=== PATIENT | female | born 1950 | race Hispanic/Latino ===

== ENCOUNTER → 2019-06-07 | Outpatient (CLI) | payer MEDICARE ==
[~2019-06-07] MED LIST: AMLO5TAB9 PO; ASPI-1005 PO; CHOL50009 PO; CLOP75TA32 PO; DAPA10TA PO; FURO40TA5 PO; GABA600T10 PO; HYDR-2132 PO; HYDR-4457 PO; IRON1CAP28 PO; LEVO112T4 PO; LIOT25TA12 PO; LISI40TA4 PO; LORA10TA7 PO; MAGN400T25 PO; MONT10TA26 PO; PIOG45TA64 PO; POTA-79 PO; PRAV20TA4 PO; ROPI0.5T7 PO; SITA1TAB6 PO; VITAMIN D PO
== END | disposition home or self-care (01) ==
LOC: RAH 13:52
PROVIDERS: ATTEND Orthopaedic Surgery
DX: M19.012 Primary osteoarthritis, left shoulder (principal); M25.812 Other specified joint disorders, left shoulder
CPT/HCPCS: 73221

== ENCOUNTER → 2020-04-24 | Outpatient (CLI) | payer MEDICARE ==
[~2020-04-24] MED LIST changes: +AMLO-257 PO; -AMLO5TAB9 PO; -LISI40TA4 PO; +LISI40TA9 PO; -MONT10TA26 PO; +MONT10TA32 PO
== END | disposition home or self-care (01) ==
LOC: RAH 07:51
PROVIDERS: ATTEND Orthopaedic Surgery
DX: S46.012A Strain of muscle(s) and tendon(s) of the rotator cuff of left shoulder, initial encounter (principal); M19.012 Primary osteoarthritis, left shoulder; M25.412 Effusion, left shoulder; X58.XXXA Exposure to other specified factors, initial encounter; Y92.89 Other specified places as the place of occurrence of the external cause; Y93.89 Activity, other specified; Y99.8 Other external cause status
CPT/HCPCS: 73221

== ENCOUNTER 2020-07-05 09:00 | Inpatient (IN) | payer MEDICARE ==
[~2020-07-05] VITALS: Ht 144.8 cm; Wt 105.9 kg
[~2020-07-05 09:00] MED LIST changes: -AMLO-257 PO; -ASPI-1005 PO; -CHOL50009 PO; -CLOP75TA32 PO; -HYDR-2132 PO; -HYDR-4457 PO; -IRON1CAP28 PO; -LIOT25TA12 PO; -LORA10TA7 PO; +MONT-39 PO; -MONT10TA32 PO; -POTA-79 PO; -PRAV20TA4 PO; -ROPI0.5T7 PO; -VITAMIN D PO
[2020-07-05 10:35] LABS: BASOPHILS % (AUTO) 0.5 % (0.0-5.0); EOSINOPHILS % (AUTO) 0.9 % (0.0-8.0); HEMATOCRIT 37.2 % (36-48); LYMPHOCYTES % (AUTO) 18.2 % (21.0-51.0); MEAN CORPUSCULAR HEMOGLOBIN 27.7 pg (27.0-33.0); MEAN CORPUSCULAR HGB CONC 30.9 g/dL (32.0-36.0); MEAN CORPUSCULAR VOLUME 89.6 fL (79-99); MONOCYTES % (AUTO) 5.3 % (3.0-13.0); NEUTROPHILS % (AUTO) 74.7 % (40.0-77.0); PLATELET COUNT (AUTO) 279 K/uL (130-400); RED BLOOD CELL COUNT(AUTO) 4.15 MIL/uL (4.00-5.50); RED CELL DISTRIBUTION WIDTH 12.9 % (11.0-15.5)
[2020-07-05 10:36] LABS: APPEARANCE,URINE Clear (CLEAR); BILIRUBIN,URINE Negative (NEGATIVE); COLOR,URINE Yellow (YELLOW); GLUCOSE, URINE (UA) >=1000 mg/dL (NEGATIVE); KETONES,URINE Negative (NEGATIVE); LEUKOCYTE ESTERASE ,URINE Moderate (NEGATIVE); NITRATE,URINE Negative (NEGATIVE); OCCULT BLOOD,URINE Negative (NEGATIVE); PH,URINE 5.5 (5.0-8.0); PROTEIN,URINE Negative (NEGATIVE); UROBILINOGEN,URINE 0.2 mg/dL (0.2-1.0)
[2020-07-05 10:40] LABS: BACTERIA,URINE Few /HPF (None Seen); RBC,URINE 0-1 /HPF (0-1); SQUAMOUS EPITHELIAL CELL,UR Few /HPF (0-2)
[2020-07-05 10:44] LABS: CREATININE 1.1 mg/dL (0.5-1.5); INR 1.01 (0.85-1.15); POTASSIUM 4.9 mmol/L (3.5-5.1)
[2020-07-09 10:32] VITALS: BP 181/72
[2020-07-09] MEDS ORDERED: LORA10TA7 PO (14:31)
[2020-07-09] MEDS ORDERED: POTA-79 PO (14:31)
[2020-07-09] MEDS ORDERED: ROSU40TA21 PO (14:31)
[2020-07-10] VITALS (22 sets, daily range): BP systolic 112–186; BP diastolic 41–73
[2020-07-10] MEDS ORDERED: GENTAMICIN SULFATE 240 MG in 0.9%NACL 100ML 100 ML IV SCH (06:00)
[2020-07-10] MEDS ORDERED: 0.9%NACL 1000ML 1,000 ML IV ONE (10:16)
[2020-07-10] MEDS ORDERED: CEFAZOLIN SODIUM 1 GM VIAL ONE ×3 (10:16→20:25)
[2020-07-10] MEDS: CEFAZOLIN SODIUM 1 GM VIAL IVP SCH ×2 (10:45→15:45)
[2020-07-10] MEDS ORDERED: ACETAMINOPHEN 500 MG TABLET ONE (13:35)
[2020-07-10] MEDS ORDERED: KETOROLAC 15MG/ML VIAL (15MG/ML) ONE (13:35)
[2020-07-10] MEDS ORDERED: CELECOXIB 200 MG CAP ONE (13:36)
[2020-07-10] MEDS ORDERED: TRANEXAMIC ACID 1000MG/10ML ONE ×2 (14:31→19:37)
[2020-07-10] MEDS ORDERED: LIDOCAINE PF 100MG/5ML (2%) SYRINGE 5ML ONE (14:55)
[2020-07-10] MEDS ORDERED: ONDANSETRON 4MG INJ ONE (14:56)
[2020-07-10] MEDS ORDERED: MIDAZOLAM HCL 1 MG/ML 2ML VIAL ONE (14:56)
[2020-07-10] MEDS ORDERED: PROPOFOL 10 MG/ML 20ML VIAL IV ONE ×2 (14:56→16:18)
[2020-07-10] MEDS ORDERED: ROCURONIUM 10MG/1ML SYR 10 MG/ML ML ONE ×2 (14:56→17:31)
[2020-07-10] MEDS ORDERED: FENTANYL CITRATE PF 50 MCG/1 ML 2ML VIAL ONE (14:57)
[2020-07-10] MEDS ORDERED: ROPIVACAINE 0.5% 5MG/ML 30ML IJ ONE (14:58)
[2020-07-10] MEDS ORDERED: KETAMINE 50MG/ML SYRINGE 50 MG/ML DISP.SYRIN IV ONE (14:58)
[2020-07-10] MEDS ORDERED: DEXAMETHASONE SOD PHOSPHATE 10MG/ML 1ML VIAL ONE (15:28)
[2020-07-10 18:16] LABS: ABG BASE EXCESS 0.1 mmol/L (-2.0-3.0); ABG HCO3 23.9 mmol/L (21.0-28.0); ABG PCO2 36 mmHg (32-45)
[2020-07-10] MEDS ORDERED: LABETALOL 20MG SYG IV ONE (18:21)
[2020-07-10] MEDS ORDERED: SUGAMMADEX SODIUM 200 MG/2 ML VIAL IV ONE (18:21)
[2020-07-10] MEDS ORDERED: KCL 20 MEQ ERTAB PO PRN (18:30)
[2020-07-10] MEDS ORDERED: OXYCODONE HCL 5 MG TAB PO PRN (18:30)
[2020-07-10] MEDS: ACETAMINOPHEN 500 MG TABLET PO SCH (18:30)
[2020-07-10] MEDS ORDERED: DiphenhydrAMINE HCL 50 MG/ML VIAL IVP PRN (18:30)
[2020-07-10] MEDS ORDERED: LIDOCAINE HCL-MPF 1% 2ML VIAL IV PRN (18:30)
[2020-07-10] MEDS ORDERED: ONDANSETRON 4MG INJ IVP PRN (18:30)
[2020-07-10] MEDS ORDERED: POTASSIUM CHLORIDE 10% ELIXIR 20 MEQ/15 ML UDCUP PO PRN (18:30)
[2020-07-10] MEDS ORDERED: FE FUMARATE/FA/MV, MIN COMB#15 1 TAB PO PRN (18:30)
[2020-07-10] MEDS ORDERED: POTASSIUM CHLORIDE 20MEQ/100ML 100 ML IV PRN (18:30)
[2020-07-10] MEDS ORDERED: TEMAZEPAM 15 MG CAPSULE PO PRN (18:30)
[2020-07-10] MEDS ORDERED: TRAMADOL HCL 50 MG TABLET PO PRN (18:30)
[2020-07-10] MEDS ORDERED: KETOROLAC 15MG/ML VIAL (15MG/ML) IV PRN (18:30)
[2020-07-10] MEDS ORDERED: MEPERIDINE-PF 25 MG/ML SYG ONE (19:03)
[2020-07-10] MEDS ORDERED: CEFOXITIN SODIUM 2 GM VIAL ONE (20:19)
[2020-07-10] MEDS: CELECOXIB 200 MG CAP PO SCH (20:56)
[2020-07-10] MEDS: FAMOTIDINE 20MG TAB PO SCH (20:57)
[2020-07-10] MEDS: ASPIRIN 81MG CHEW TAB PO SCH (20:57)
[2020-07-10] MEDS: INSULIN HUMULIN R 100 UNIT/ML 3ML SQ SCH (20:59)
[2020-07-11] VITALS (7 sets, daily range): BP systolic 105–156; BP diastolic 46–81
[2020-07-11] MEDS: CEFAZOLIN SODIUM 1 GM VIAL IVP SCH ×2 (00:29→06:08)
[2020-07-11] MEDS: ACETAMINOPHEN 500 MG TABLET PO SCH ×3 (02:33→20:45)
[2020-07-11] MEDS: 0.9%NACL 1000ML 1,000 ML IV SCH ×2 (02:33→14:30)
[2020-07-11] MEDS: OXYCODONE HCL 5 MG TAB PO PRN ×3 (02:34→23:42)
[2020-07-11 03:34] LABS: HEMATOCRIT 32.3 % (36-48); MEAN CORPUSCULAR HEMOGLOBIN 27.3 pg (27.0-33.0); MEAN CORPUSCULAR HGB CONC 30.3 g/dL (32.0-36.0); RED BLOOD CELL COUNT(AUTO) 3.59 MIL/uL (4.00-5.50); RED CELL DISTRIBUTION WIDTH 13.1 % (11.0-15.5); WHITE BLOOD COUNT (AUTO) 14.3 K/uL (4.8-10.8)
[2020-07-11 03:45] LABS: CREATININE 1.1 mg/dL (0.5-1.5); POTASSIUM 4.8 mmol/L (3.5-5.1)
[2020-07-11] MEDS: LEVOTHYROXINE 112 MCG TABLET PO SCH (05:41)
[2020-07-11] MEDS: INSULIN HUMULIN R 100 UNIT/ML 3ML SQ SCH ×4 (06:26→20:41)
[2020-07-11] MEDS: METFORMIN HCL PO SCH ×2 (08:00→17:00)
[2020-07-11] MEDS: SITAGLIPTIN PHOS PO SCH ×2 (08:00→17:00)
[2020-07-11] MEDS: LORATADINE 10 MG TABLET PO SCH (08:45)
[2020-07-11] MEDS: MAGNESIUM OXIDE 400 MG TABLET PO SCH (08:45)
[2020-07-11] MEDS: FAMOTIDINE 20MG TAB PO SCH (08:45)
[2020-07-11] MEDS: FUROSEMIDE 40 MG TABLET PO SCH (08:46)
[2020-07-11] MEDS: CALCIUM CARB 500MG PO PRN ×2 (08:46→19:33)
[2020-07-11] MEDS: ASPIRIN 81MG CHEW TAB PO SCH ×2 (08:46→19:33)
[2020-07-11] MEDS: LISINOPRIL 40 MG TABLET PO SCH (08:46)
[2020-07-11] MEDS: KCL 20 MEQ ERTAB PO SCH (08:46)
[2020-07-11] MEDS: GABAPENTIN 300 MG CAPSULE PO SCH ×3 (08:47→19:33)
[2020-07-11] MEDS: CELECOXIB 200 MG CAP PO SCH ×2 (08:47→19:33)
[2020-07-11] MEDS: DAPAGLIFLOZIN PROPANEDIOL 10 MG PO SCH (08:48)
[2020-07-11] MEDS: POLYETHYLENE GLYCOL 3350 17 GM POWD.PACK PO SCH (08:48)
[2020-07-11] MEDS: PIOGLITAZONE 15MG TAB PO SCH (17:53)
[2020-07-11] MEDS ORDERED: ATORVASTATIN 40 MG TABLET ONE (19:29)
[2020-07-11] MEDS ORDERED: MONTELUKAST SODIUM 10 MG TAB PO SCH (21:00)
[2020-07-11] MEDS ORDERED: ATORVASTATIN 40 MG TABLET PO SCH (21:00)
[2020-07-12 04:41] VITALS: BP 109/52
[2020-07-12] MEDS: ACETAMINOPHEN 500 MG TABLET PO SCH ×2 (05:18→13:42)
[2020-07-12] MEDS: LEVOTHYROXINE 112 MCG TABLET PO SCH (05:18)
[2020-07-12] MEDS: INSULIN HUMULIN R 100 UNIT/ML 3ML SQ SCH ×3 (05:59→16:30)
[2020-07-12 08:00] VITALS: BP 108/55
[2020-07-12] MEDS: SITAGLIPTIN PHOS PO SCH ×2 (08:00→17:00)
[2020-07-12] MEDS: METFORMIN HCL PO SCH ×2 (08:00→17:00)
[2020-07-12] MEDS: OXYCODONE HCL 5 MG TAB PO PRN (08:10)
[2020-07-12] MEDS: DAPAGLIFLOZIN PROPANEDIOL 10 MG PO SCH (09:00)
[2020-07-12] MEDS: POLYETHYLENE GLYCOL 3350 17 GM POWD.PACK PO SCH (09:29)
[2020-07-12] MEDS: ASPIRIN 81MG CHEW TAB PO SCH (09:30)
[2020-07-12] MEDS: MAGNESIUM OXIDE 400 MG TABLET PO SCH (09:30)
[2020-07-12] MEDS: KCL 20 MEQ ERTAB PO SCH (09:31)
[2020-07-12] MEDS: CELECOXIB 200 MG CAP PO SCH (09:31)
[2020-07-12] MEDS: GABAPENTIN 300 MG CAPSULE PO SCH ×2 (09:31→13:41)
[2020-07-12] MEDS: FAMOTIDINE 20MG TAB PO SCH (09:32)
[2020-07-12] MEDS: LISINOPRIL 40 MG TABLET PO SCH (09:32)
[2020-07-12] MEDS: LORATADINE 10 MG TABLET PO SCH (09:33)
[2020-07-12] MEDS: FUROSEMIDE 40 MG TABLET PO SCH (09:34)
[2020-07-12 11:49] VITALS: BP 120/43
[2020-07-12 16:00] VITALS: BP 127/52
[2020-07-12] MEDS ORDERED: HYDR-4060 PO (17:44)
[2020-07-12] MEDS: PIOGLITAZONE 15MG TAB PO SCH (18:18)
[2020-07-13] MEDS ORDERED: BISACODYL 10 MG SUPP.RECT RC PRN (18:30)
== END 2020-07-12 19:13 | disposition home health service (06) | DRG 483 ==
LOC: EDSTATUS 09:00 → DAHIP 07-10 09:47 → OBSVTOIN 07-10 09:47 → 4AH 07-10 19:46
PROVIDERS: ADMIT Orthopaedic Surgery; ATTEND Orthopaedic Surgery
PROC: 0RRK0JZ Replacement of Left Shoulder Joint with Synthetic Substitute, Open Approach (ICD-10-PCS; principal; 2020-07-10 14:56)
DX: M19.012 Primary osteoarthritis, left shoulder (principal); D64.9 Anemia, unspecified; I10 Essential (primary) hypertension; E11.9 Type 2 diabetes mellitus without complications; E78.00 Pure hypercholesterolemia, unspecified; E03.9 Hypothyroidism, unspecified; Z20.822 Contact with and (suspected) exposure to COVID-19; Z96.611 Presence of right artificial shoulder joint; Z96.652 Presence of left artificial knee joint; Z88.8 Allergy status to other drugs, medicaments and biological substances; Z90.710 Acquired absence of both cervix and uterus; Z90.49 Acquired absence of other specified parts of digestive tract
CPT/HCPCS: 36415; 73030; 80048; 81001; 82435; 82803; 82947; 82948; 83605; 84132; 84295; 85018; 85025; 85027; 85610; 87088; 87641; 88305; 88311; 93005; 96365; 96374; 97039; A4565; C1776; G0378; J0690; J0694; J1100; J1580; J1815; J1885; J2001; J2175; J2250; J2405; J2704; J2795; J3010; J3490; J7030; J7040; U0003

== ENCOUNTER → 2020-10-08 | Outpatient (CLI) | payer MEDICARE ==
[~2020-10-08] MED LIST changes: +HYDR-4060 PO; +LORA10TA7 PO; -MONT-39 PO; +MONT10TA32 PO; +POTA-79 PO; +ROSU40TA21 PO
== END | disposition home or self-care (01) ==
LOC: RAH 08:27
PROVIDERS: ATTEND Family Medicine
DX: M47.817 Spondylosis without myelopathy or radiculopathy, lumbosacral region (principal); M48.07 Spinal stenosis, lumbosacral region
CPT/HCPCS: 72148

== ENCOUNTER 2021-04-19 11:01 | Emergency (ER) | payer OTHER, MEDICARE ==
[~2021-04-19] VITALS: Ht 149.9 cm; Wt 104.3 kg
[~2021-04-19 11:01] MED LIST changes: +MONT-39 PO; -MONT10TA32 PO
[2021-04-19 11:47] LABS: BASOPHILS % (AUTO) 0.3 % (0.0-5.0); EOSINOPHILS % (AUTO) 0.3 % (0.0-8.0); HEMATOCRIT 38.3 % (36-48); LYMPHOCYTES % (AUTO) 15.6 % (21.0-51.0); MEAN CORPUSCULAR HEMOGLOBIN 25.5 pg (27.0-33.0); MEAN CORPUSCULAR HGB CONC 30.5 g/dL (32.0-36.0); MEAN CORPUSCULAR VOLUME 83.6 fL (79-99); MONOCYTES % (AUTO) 6.3 % (3.0-13.0); NEUTROPHILS % (AUTO) 77.1 % (40.0-77.0); PLATELET COUNT (AUTO) 311 K/uL (130-400); RED BLOOD CELL COUNT(AUTO) 4.58 MIL/uL (4.00-5.50); RED CELL DISTRIBUTION WIDTH 14.8 % (11.0-15.5); WHITE BLOOD COUNT (AUTO) 12.9 K/uL (4.8-10.8)
[2021-04-19 12:01] LABS: ALBUMIN 3.8 g/dL (3.5-5.0); BILIRUBIN,TOTAL 0.2 mg/dL (0.2-1.0); CREATININE 1.1 mg/dL (0.5-1.5); POTASSIUM 4.3 mmol/L (3.5-5.1); TOTAL PROTEIN, SERUM 7.9 g/dL (6.0-8.3)
[2021-04-19 12:24] LABS: APPEARANCE,URINE Clear (CLEAR); BILIRUBIN,URINE Negative (NEGATIVE); COLOR,URINE Yellow (YELLOW); GLUCOSE, URINE (UA) >=1000 mg/dL (NEGATIVE); KETONES,URINE Negative (NEGATIVE); LEUKOCYTE ESTERASE ,URINE Negative (NEGATIVE); NITRATE,URINE Negative (NEGATIVE); OCCULT BLOOD,URINE Negative (NEGATIVE); PH,URINE 5.5 (5.0-8.0); PROTEIN,URINE Negative (NEGATIVE); UROBILINOGEN,URINE 0.2 mg/dL (0.2-1.0)
[2021-04-19 12:52] LABS: BACTERIA,URINE Rare /HPF (None Seen); RBC,URINE 0-1 /HPF (0-1); SQUAMOUS EPITHELIAL CELL,UR Rare /HPF (0-2); WBC,URINE 0-1 /HPF (0-1)
[2021-04-19 13:53] VITALS: BP 152/71
[2021-04-19] MEDS ORDERED: CIPR-278 PO (14:21)
[2021-04-19] MEDS ORDERED: GABA600T10 PO (14:21)
[2021-04-19] MEDS ORDERED: LEVOFLOXACIN 500 MG TABLET PO SCH (14:30)
== END 2021-04-19 14:56 | disposition home or self-care (01) ==
LOC: EDH 11:01
DX: K52.9 Noninfective gastroenteritis and colitis, unspecified (principal); E11.9 Type 2 diabetes mellitus without complications; E78.00 Pure hypercholesterolemia, unspecified; M19.90 Unspecified osteoarthritis, unspecified site; Z88.1 Allergy status to other antibiotic agents; Z79.84 Long term (current) use of oral hypoglycemic drugs; Z79.899 Other long term (current) drug therapy; Z90.49 Acquired absence of other specified parts of digestive tract
CPT/HCPCS: 36415; 74176; 80053; 81001; 83690; 84484; 85025; 93005

== ENCOUNTER 2023-05-09 09:12 | Observation (INO) | payer MEDICARE ==
[~2023-05-09] VITALS: Ht 149.9 cm; Wt 108.0 kg
[~2023-05-09 09:12] MED LIST changes: +CIPR-278 PO; +POTA-364 PO; -POTA-79 PO
[2023-05-09 10:01] LABS: BASOPHILS # (AUTO) 0.07 K/uL (0.00-0.20); BASOPHILS % (AUTO) 0.5 % (0.0-5.0); EOSINOPHILS # (AUTO) 0.06 K/uL (0.00-0.70); EOSINOPHILS % (AUTO) 0.4 % (0.0-8.0); HEMATOCRIT 33.3 % (36-48); IMMATURE GRANULOCYTE ABSOLUTE 0.08 K/uL (0-1); LYMPHOCYTES # (AUTO) 1.7 K/uL (1.0-4.8); LYMPHOCYTES % (AUTO) 12.1 % (21.0-51.0); MEAN CORPUSCULAR HEMOGLOBIN 24.6 pg (27.0-33.0); MEAN CORPUSCULAR HGB CONC 29.1 g/dL (32.0-36.0); MEAN CORPUSCULAR VOLUME 84.3 fL (79-99); MONOCYTES # (AUTO) 1.1 K/uL (0.1-1.0); MONOCYTES % (AUTO) 8.1 % (3.0-13.0); NEUTROPHILS % (AUTO) 78.3 % (40.0-77.0); PLATELET COUNT (AUTO) 336 K/uL (130-400); RED BLOOD CELL COUNT(AUTO) 3.95 MIL/uL (4.00-5.50); RED CELL DISTRIBUTION WIDTH 14.6 % (11.0-15.5)
[2023-05-09 10:13] LABS: APPEARANCE,URINE CLEAR (CLEAR); BILIRUBIN,URINE NEGATIVE (NEGATIVE); COLOR,URINE LIGHT-YELLOW (YELLOW); GLUCOSE, URINE (UA) 300 mg/dL (NEGATIVE); KETONES,URINE NEGATIVE (NEGATIVE); LEUKOCYTE ESTERASE ,URINE NEGATIVE Leu/uL (NEGATIVE); NITRATE,URINE NEGATIVE (NEGATIVE); OCCULT BLOOD,URINE NEGATIVE (NEGATIVE); PH,URINE 5.5 (5.0-8.0); PROTEIN,URINE 100 mg/dL (NEGATIVE); UROBILINOGEN,URINE 0.2 mg/dL (0.2-1.0)
[2023-05-09 10:13] LABS: CREATININE 1.8 mg/dL (0.5-1.5); POTASSIUM 4.7 mmol/L (3.5-5.1)
[2023-05-09 10:14] LABS: ADD UA MICROSCOPIC YES
[2023-05-09 10:17] LABS: BACTERIA,URINE RARE /HPF (None Seen); MUCUS,URINE RARE LPF (None Seen); RBC,URINE 0-1 /HPF (0-1); WBC,URINE 0-1 /HPF (0-1)
[2023-05-09 10:17] LABS: BILIRUBIN,TOTAL 0.2 mg/dL (0.2-1.0); TOTAL PROTEIN, SERUM 7.3 g/dL (6.0-8.3)
[2023-05-09 12:34] LABS: SARS-CoV-2, RNA, NAAT NEGATIVE SARS CoV-2 (NEGATIVE)
[2023-05-09 12:37] LABS: INFLUENZA TYPE A Negative For Type A (NEGATIVE); INFLUENZA TYPE B Negative For Type B (NEGATIVE)
[2023-05-09] MEDS ORDERED: GUAIFENESIN SUGAR-FREE 100 MG/5 ML UDCUP PO PRN (13:00)
[2023-05-09] MEDS ORDERED: POLYETHYLENE GLYCOL 3350 17 GM POWD.PACK PO PRN (13:00)
[2023-05-09] MEDS ORDERED: BENZOCAINE/MENTH/CETYLPYRD CL 1 EACH LOZENGE MM PRN (13:00)
[2023-05-09] MEDS ORDERED: DOCUSATE SODIUM 100 MG CAP PO PRN (13:00)
[2023-05-09] MEDS ORDERED: LOPERAMIDE HCL 2 MG CAP PO PRN (13:00)
[2023-05-09 13:08] LABS: THYROID STIMULATING HORMONE 1.23 uIU/mL (0.36-3.74)
[2023-05-09] MEDS ORDERED: BUSP5TAB3 PO (14:21)
[2023-05-09] MEDS ORDERED: AMLO-257 PO (14:21)
[2023-05-09] MEDS ORDERED: LEVO150C4 PO (14:21)
[2023-05-09] MEDS ORDERED: MONT-39 PO (14:21)
[2023-05-09] MEDS ORDERED: METF-446 PO (14:21)
[2023-05-09] MEDS ORDERED: LISI40TA9 PO (14:21)
[2023-05-09] MEDS ORDERED: HYDR-3421 PO (14:21)
[2023-05-09] MEDS ORDERED: HYDR25TA PO (14:21)
[2023-05-09] MEDS ORDERED: ATOR10 PO (14:21)
[2023-05-09] MEDS ORDERED: GLIM2TAB30 PO (14:21)
[2023-05-09] MEDS ORDERED: METO50TA18 PO (14:21)
[2023-05-09] MEDS ORDERED: OMEP20CA12 PO (14:21)
[2023-05-09] MEDS ORDERED: CILO100T3 PO (14:21)
[2023-05-09] MEDS ORDERED: GABA600T10 PO (14:21)
[2023-05-09] MEDS ORDERED: FURO40TA5 PO (14:21)
[2023-05-09 14:40] VITALS: BP 157/70; PULSE 68; RESP 18
[2023-05-09 14:50] VITALS: O2SAT 95
[2023-05-09 15:27] LABS: AMPHET/METH SCREEN,URINE NEGATIVE (NEGATIVE); BARBITURATE SCREEN, URINE NEGATIVE (NEGATIVE); BENZODIAZEPINES SCREEN,URINE NEGATIVE (NEGATIVE); CANNABINOID SCREEN,URINE NEGATIVE (NEGATIVE); COCAINE SCREEN,URINE NEGATIVE (NEGATIVE); OPIATE SCREEN,URINE NEGATIVE (NEGATIVE); PHENCYCLIDINE SCREEN,URINE NEGATIVE (NEGATIVE)
[2023-05-09] MEDS ORDERED: BENZ-226 PO (15:28)
[2023-05-09] MEDS ORDERED: IBUP-2077 PO (15:28)
[2023-05-09] MEDS ORDERED: ASPI500T19 PO (15:33)
[2023-05-09] MEDS ORDERED: DESL5TAB38 PO (15:33)
[2023-05-09] MEDS ORDERED: CHOL200012 PO (15:33)
[2023-05-09 17:00] VITALS: BP 153/68; PULSE 94; RESP 18
[2023-05-09 19:45] VITALS: O2SAT 94
[2023-05-09 20:00] VITALS: BP 149/68; PULSE 94; RESP 20
[2023-05-10] VITALS: BP 125/65; PULSE 91; RESP 20
[2023-05-10 04:00] VITALS: BP 131/65; PULSE 76; RESP 20
[2023-05-10 08:00] VITALS: BP 120/66; PULSE 77; RESP 20
[2023-05-10 09:47] LABS: BASOPHILS # (AUTO) 0.05 K/uL (0.00-0.20); BASOPHILS % (AUTO) 0.4 % (0.0-5.0); EOSINOPHILS # (AUTO) 0.05 K/uL (0.00-0.70); EOSINOPHILS % (AUTO) 0.4 % (0.0-8.0); HEMATOCRIT 33.3 % (36-48); IMMATURE GRANULOCYTE ABSOLUTE 0.08 K/uL (0-1); LYMPHOCYTES # (AUTO) 1.4 K/uL (1.0-4.8); MEAN CORPUSCULAR HEMOGLOBIN 24.3 pg (27.0-33.0); MEAN CORPUSCULAR HGB CONC 28.8 g/dL (32.0-36.0); MEAN CORPUSCULAR VOLUME 84.3 fL (79-99); MONOCYTES # (AUTO) 0.9 K/uL (0.1-1.0); NEUTROPHILS # (AUTO) 10.4 K/uL (1.8-7.7); NEUTROPHILS % (AUTO) 80.6 % (40.0-77.0); PLATELET COUNT (AUTO) 323 K/uL (130-400); RED BLOOD CELL COUNT(AUTO) 3.95 MIL/uL (4.00-5.50); RED CELL DISTRIBUTION WIDTH 14.6 % (11.0-15.5)
[2023-05-10 09:54] LABS: CREATININE 1.3 mg/dL (0.5-1.5); POTASSIUM 4.4 mmol/L (3.5-5.1)
[2023-05-10] MEDS: ENOXAPARIN SODIUM 40 MG/0.4 ML SYRINGE SQ SCH (09:57)
[2023-05-10] MEDS: PANTOPRAZOLE 40 MG TAB DR PO SCH (09:57)
[2023-05-10 10:36] VITALS: O2SAT 96
[2023-05-10 12:00] VITALS: BP 165/66; PULSE 80; RESP 20
[2023-05-10 16:00] VITALS: BP 175/77; PULSE 79; RESP 20
== END 2023-05-10 17:55 | disposition home or self-care (01) ==
LOC: EDH 09:12 → EDHIP 12:49 → 3DH 14:40
PROVIDERS: ADMIT Internal Medicine; ATTEND Internal Medicine
DX: R41.82 Altered mental status, unspecified (principal); Z20.822 Contact with and (suspected) exposure to COVID-19; E11.65 Type 2 diabetes mellitus with hyperglycemia; I10 Essential (primary) hypertension; J45.909 Unspecified asthma, uncomplicated; E03.9 Hypothyroidism, unspecified; E66.9 Obesity, unspecified; G47.33 Obstructive sleep apnea (adult) (pediatric); M06.9 Rheumatoid arthritis, unspecified; G89.29 Other chronic pain; M54.50 Low back pain, unspecified; N28.9 Disorder of kidney and ureter, unspecified; G25.3 Myoclonus; R47.01 Aphasia; E78.00 Pure hypercholesterolemia, unspecified; Z79.899 Other long term (current) drug therapy; Z90.710 Acquired absence of both cervix and uterus
CPT/HCPCS: 81001; 99284; 84443; 80053; 83880; 80305; 82140; 85025 ×2; 87040 ×2; 87804 ×2; 82948 ×4; 83605; 36415 ×2; 87635; 71045; 70450; 96372; 80048; G0378 ×29; J1650